=== PATIENT | male | born 1975 | race African-American/Black ===

== ENCOUNTER 2024-08-28 13:52 | Emergency (ER) | payer SELFPAY ==
[2024-08-28 13:53] VITALS: BP 126/73; PULSE 93; RESP 17; TEMP 36.2; O2SAT 93; BMI 31.4
--- NOTE | 2024-08-28 14:05 | ED.RN ---
This nurse entered patient room to do assessments and ask intake information. Patient stated, I dont do doctors, they cost too much. Im just here for a doctors note. Patient declined to answer past medical history questions.
--- NOTE | 2024-08-28 14:14 | ED.RN ---
THIS NURSE JUST RETURNED TO HER TEAM BEING CARED FOR BY ALTAF Gomez. 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 HE JUST CAME FOR A DRS NOTE
--- NOTE | 2024-08-28 14:17 | RAD_ITS ---
STUDY: X-RAY - RIGHT FOOT CLINICAL: Male, 49 years old. Swelling following injury. TECHNIQUE: 3 view(s) of the foot. COMPARISON: None. FINDINGS: Normal talus, calcaneus, and tarsal bones. Normal visualized subtalar, talonavicular, calcaneocuboid, tarsal and tarsometatarsal articulations. Normal metatarsi. Normal metatarsophalangeal joint of the great toe. Normal tibial and fibular sesamoid bones. Normal interphalangeal joint of the great toe. Normal phalanges of the great toe. Normal second through fifth metatarsophalangeal joints. Normal interphalangeal joints and phalanges of the lesser toes. Dorsal soft tissue swelling. RAD/Foot min 3 Views IMPRESSION: Dorsal soft tissue swelling. Electronically Signed: Benoit Bhatt MD at 14:33 EST ,
--- NOTE | 2024-08-28 14:25 | RAD_ITS ---
STUDY: X-RAY - RIGHT ANKLE REASON FOR EXAM: Male, 49 years old. Ankle pain following a recent fall. TECHNIQUE: 3 view(s) of the ankle. COMPARISON: None. FINDINGS: Nondisplaced oblique fracture of the lateral malleolus. Normal medial and lateral malleoli. Asymmetry of the ankle mortise. Normal visualized talus and calcaneus. The visualized subtalar, talonavicular, calcaneocuboid and tarsal articulations are normal. Soft tissue swelling. RAD/Ankle min 3 Views IMPRESSION: Nondisplaced oblique fracture of the lateral malleolus with overlying soft tissue swelling. There is asymmetry of the ankle mortise. Electronically Signed: Benoit Bhatt MD at 14:54 EST ,
--- NOTE | 2024-08-28 14:40 | EX.ED.DYSGE1 ---
HPI <RHODA Bustos - Last Filed: 08/28/24 15:18> History of Present Illness Chief Complaint: Lower Extremity Injury Narrative Narrative: Patient is a 49-year-old male, patient has no significant history. Presents to the Emergency Department for right foot, right ankle pain for the last several days. Patient is asked questions and only gives one-word answers. Patient states he just tripped a couple days ago, when asked where his pain is he states my foot. Patient denies any other injury PFSH <RHODA Bustos - Last Filed: 08/28/24 15:18> [facility] Medical History unable to obtain Home Medications ?Medication ?Instructions ?Recorded ?Last Taken ?Type cephalexin 500 mg capsule (Keflex) 500 mg PO TID ##30 07/06/13 Unknown Rx prednisone 20 mg tablet 20 mg PO BIDCM ##14 07/06/13 Unknown Rx sulfamethoxazole 800 1 tab PO BID ##20 07/06/13 Unknown Rx mg-trimethoprim 160 mg tablet ibuprofen 600 mg tablet 600 mg PO Q6H PRN PRN pain #20 08/28/24 Unknown Rx TABLETS Allergy/AdvReac Type Severity Reaction Status Date / Time No Known Allergies Allergy Verified 08/28/24 13:53 Social History (Updated 04/26/20 @ 17:50 by Eddie DAVIS, RYAN) Smoking Status: Current every day smoker tobacco type: cigarettes ROS <RHODA Bustos - Last Filed: 08/28/24 15:18> ROS ED ROS Narrative Constitutional: Negative for fever, chills, weight loss, weakness Eyes: Negative for vision loss, vision change, double vision ENT: Negative for any sore throat, ear pain, congestion Cardiovascular: Negative for any chest pain, tightness, palpitations Respiratory: Negative for any cough, sputum production, hemoptysis, dyspnea, dyspnea on exertion, orthopnea Gastrointestinal: Negative for any abdominal pain, nausea, vomiting, diarrhea, constipation, blood in stool, blood in vomit : Negative for any urinary frequency, dysuria, retention, blood in urine Muscle skeletal: Negative for any neck pain, back pain. Positive pain to the right foot Neurological: Negative for any headache, syncope, dizziness Skin: Negative for any rashes, itching, abrasions, lacerations Psychiatric: Negative for any depression, anxiety, stress, suicidal ideation, homicidal ideation Hematologic: Negative for any excessive bruising, easy bleeding EXAM <RHODA Bustos - Last Filed: 08/28/24 15:18> Physical Exam Narrative Exam Narrative: Vital signs reviewed. Extremities: Patient has edema to the right foot as well as to the right medial malleolus. Most the pain is to the lateral aspect. +2 pedal pulses. Neuro: Cranial nerves II through XII intact, no focal neurological deficits. Skin: Clean dry and intact with no rash, purpura, petechiae, vesicles or pustules. Backs/flank: No CVA tenderness, no midline spinal tenderness, no deformity. Psych: Normal mood and affect. No SI, HI or acute psychosis. Const Vital Signs: 08/28/24 13:53 Temperature 97.2 F L Temperature Source Temporal Pulse Rate 93 Respiratory Rate 17 Blood Pressure 126/73 H Blood Pressure Mean 90 Pulse Ox 93 Oxygen Delivery Method Room Air <Dr. Jose Islas DO - Last Filed: 08/28/24 15:32> Physical Exam Const Vital Signs: 08/28/24 13:53 Temperature 97.2 F L Temperature Source Temporal Pulse Rate 93 Respiratory Rate 17 Blood Pressure 126/73 H Blood Pressure Mean 90 Pulse Ox 93 Oxygen Delivery Method Room Air MDM <RHODA Bustos - Last Filed: 08/28/24 15:18> MDM Radiography Diagnostic Testing: Clinical Impression(s) from Imaging Studies Foot X-Ray 08/28/24 14:17 IMPRESSION: Dorsal soft tissue swelling. Electronically Signed: Benoit Bhatt MD at 14:33 EST , Ankle X-Ray 08/28/24 14:25 IMPRESSION: Nondisplaced oblique fracture of the lateral malleolus with overlying soft tissue swelling. There is asymmetry of the ankle mortise. Electronically Signed: Benoit Bhatt MD at 14:54 EST , Treatment and Re-Evaluation :: Differential diagnosis includes however is not limited to: Foot fracture, metatarsal fracture, dislocation, ankle fracture, ankle sprain, foot contusion Patient appears generally well, vital signs are stable, patient is nontoxic-appearing. Presenting to the emergency department complaints of right foot, right ankle pain. Patient will receive x-rays of the right foot, right ankle. All radiologic examinations were read, reviewed by the emergency department attending. From these reads, a plan of care will be put in place. Patient's x-ray of the right ankle shows nondisplaced oblique fracture of the lateral malleolus with overlying soft tissue swelling. There is asymmetry of the ankle mortise. Dorsal aspect shown on the foot. At this time, patient was placed in a short leg posterior/sugar-tong splint. Patient be given crutches with instruction. He is at this time nonweightbearing. He was given a work note. He needs to follow-up with orthopedics. Patient is agreeable. Did offer the patient pain medicine for home, he states he would just like ibuprofen and Tylenol. All questions answered, stable for discharge. He was educated that he cannot walk on this injury. <Dr. Jose Islas, DO - Last Filed: 08/28/24 15:32> [facility] History & Record Review Discussion w/independent historian: Patient Radiography Diagnostic Testing: Clinical Impression(s) from Imaging Studies Foot X-Ray 08/28/24 14:17 IMPRESSION: Dorsal soft tissue swelling. Electronically Signed: Benoit Bhatt MD at 14:33 EST , Ankle X-Ray 08/28/24 14:25 IMPRESSION: Nondisplaced oblique fracture of the lateral malleolus with overlying soft tissue swelling. There is asymmetry of the ankle mortise. Electronically Signed: Benoit Bhatt MD at 14:54 EST , Treatment and Re-Evaluation :: Differential diagnosis includes however is not limited to: Foot fracture, metatarsal fracture, dislocation, ankle fracture, ankle sprain, foot contusion Patient appears generally well, vital signs are stable, patient is nontoxic-appearing. Presenting to the emergency department complaints of right foot, right ankle pain. Patient will receive x-rays of the right foot, right ankle. All radiologic examinations were read, reviewed by the emergency department attending. From these reads, a plan of care will be put in place. Patient's x-ray of the right ankle shows nondisplaced oblique fracture of the lateral malleolus with overlying soft tissue swelling. There is asymmetry of the ankle mortise. Dorsal aspect shown on the foot. At this time, patient was placed in a short leg posterior/sugar-tong splint. Patient be given crutches with instruction. He is at this time nonweightbearing. He was given a work note. He needs to follow-up with orthopedics. Patient is agreeable. Did offer the patient pain medicine for home, he states he would just like ibuprofen and Tylenol. All questions answered, stable for discharge. He was educated that he cannot walk on this injury. I have personally performed a face to face assessment of the patient and have reviewed the DRE Note. I performed a substantive portion of the visit including all aspects of the following. My rosario findings include: History is 49-year-old male presenting with right foot and ankle injury. He states he injured it several days ago has been walking with a cane. He notes swelling that has not come down and so he was concerned. He notes he is not having much pain. States he has had a prior fracture was placed in a cast but did walked out of it and never went back. Exam is right foot and ankle is diffusely swollen. It does appear unstable with some degree of subluxation particularly anterior posterior when I manipulated but is not very tender. He is got palpable bony deformity over the lateral malleolus. Medical Decison Making my independent interpretation the plain films of the right foot is no acute fracture of the foot. My independent interpretation of plain films of the right ankle is a lateral malleolus fracture with asymmetry of the ankle mortise. Patient was placed in a posterior stirrup splint. He is given crutches advised nonambulatory. They have a follow-up with podiatry. Discharge Plan Triage Chief Complaint: Lower Extremity Injury ED Midlevel Provider: Alexys Oreilly ED Provider: Jose Islas Dx/Rx/DC Orders Clinical Impression: Ankle fracture Instructions: ED Ankle Fracture Prescriptions: New ibuprofen 600 mg tablet 600 mg PO Q6H PRN PRN (Reason: pain) Qty: 20 0RF No Action prednisone 20 MG tablet 20 mg PO BIDCM Qty: 14 0RF sulfamethoxazole-trimethoprim 1 TABLET tablet 1 tab PO BID Qty: 20 0RF cephalexin [Keflex] 500 MG capsule 500 mg PO TID Qty: 30 0RF Stand Alone Forms: ED Work / School Excuse Primary Care Provider: Care Physician,No Primary Referrals: Giovanni Huang DPM [Med Staff - Active Staff] - Care Physician,No Primary [Primary Care Provider] - Activity Restrictions/Additional Instructions: Please follow-up outpatient. I gave you prescription for ibuprofen, I also gave you a number for Dr. Huang who is the ankle surgeon that you need to see. You are nonweightbearing, meaning you cannot walk on this foot. Use the crutches. Print Language: Albanian Disposition Disposition: Home, Self Care
== END 2024-08-28 15:35 | disposition home or self-care (01) ==
PROVIDERS: Emergency Provider Emergency Medicine; Visit Provider Emergency Medicine
DX: S82.64XA Nondisplaced fracture of lateral malleolus of right fibula, initial encounter for closed fracture (principal); W22.8XXA Striking against or struck by other objects, initial encounter; F17.210 Nicotine dependence, cigarettes, uncomplicated; Z79.899 Other long term (current) drug therapy
CPT/HCPCS: 29515; 73610; 73630; 99283